=== PATIENT | female | born 1980 | race Caucasian/White ===

== ENCOUNTER 2016-10-27 19:00 | Emergency (ER) | payer OTHER ==
[2016-10-27] MEDS ORDERED: predniSONE Tab 20 MG TAB PO ONE (19:23)
[2016-10-27] MEDS ORDERED: Amoxicill/Clav 875/125mg Tab 1 TAB TAB PO ONE (19:25)
[2016-10-27] MEDS ORDERED: Amoxicill/Clav 875/125mg Tab 1 TAB TAB PO SCH (19:30)
--- NOTE | 2016-10-27 19:30 | PDOC ---
Skin Rash/Insect/Abscess HPI - General Chief Complaint: Integumentary Stated Complaint: BEE STING Date Seen by Provider: 10/27/16 Time Seen by Provider: 19:25 - History of Present Illness Initial Comments: Patient is a very nice 36-year-old woman who unfortunately suffered a bee sting yesterday this is been getting worse since the time of this thing. She now has a significant area about 4" x 8" of erythema on the posterior aspect of her right arm that is causing some general malaise and some low-grade fever. She has never had substantial response to a bee sting like this before has never really felt that she's been allergic to them. She is not allergic to any antibiotics. Have you received a tetanus shot in the past 10 years?: Yes Past Medical History - heen HEENT History: Denies History Cardiovascular History: Denies History ROS - Limitations ROS Limitations: No Limitations Cardiovascular: REPORTS: Denies Cardiac Symptoms Respiratory: REPORTS: Denies Resp Symptoms Neurological: REPORTS: Denies Neuro Symptoms Skin Rash/Insect/Abscess Exam - General Appearance General Appearance: REPORTS: Alert, Cooperative, No Acute Distress - Skin Skin: REPORTS: Other (On the posterior aspect of her right arm over her triceps she has a large area of erythema approximately 4 or inches by 8 inches that is red and tender and hot and is consistent with cellulitis appears to be a bit more than an envenomation site.) Skin Rash/Abscess Progress - Patient's Progress MDM / ED Course: I think she is developing some cellulitis in addition to the envenomation that she had. Him and go and treat her with some topical corticosteroids a couple of days oral corticosteroids in addition to some Augmentin and some antihistamines. She is to watch this area closely and seek medical attention if she begins to have increasing fever or chills expanding redness or any other concerns. I do not see any area of fluctuance or anything that could be drained at this point. Patient Care Time - Estimated PCT Patient Care Time (In Minutes): 15 Vital Signs - VS Reviewed Vital Signs Reviewed: Yes Discharge Clinical Impression: Cellulitis, Insect bite - wound Discharge Disposition: Discharged to Home Condition: Good Patient Instructions Given at Discharge: Cellulitis (ED), Insect Bite or Sting (ED) Additional Instructions: Take Augmentin 875 mg by mouth twice a day for 7 days Take [id number] antihistamines to help with your cellulitis and insect envenomation symptoms Use topical hydrocortisone over the site of envenomation to help with symptoms Take 40 mg of prednisone daily for 3 days If the area of redness is worsening or you are experiencing increasing symptoms such as increasing fever or chills malaise or other concerns do not hesitate to be seen here again or follow-up with your primary care provider right away Follow Up With: NONE,NONE [Primary Care Provider] -
[2016-10-27 20:14] VITALS: RESP 14; TEMP 98.2
== END 2016-10-27 19:44 | disposition home or self-care (01) ==
LOC: ER 19:00
DX: L03.113 Cellulitis of right upper limb (principal); R50.9 Fever, unspecified; T63.441A Toxic effect of venom of bees, accidental (unintentional), initial encounter
CPT/HCPCS: 99282 ×2; J7512

== ENCOUNTER 2016-10-28 00:40 | Emergency (ER) | payer OTHER ==
[2016-10-28] MEDS ORDERED: Sodium Chloride 0.9% 1,000 ML PRIMARY IV ONE (01:14)
[2016-10-28] MEDS ORDERED: ONDANSETRON 4 MG/2 ML VIAL IVP ONE (01:14)
[2016-10-28] MEDS ORDERED: KETOROLAC 15 MG/1 ML VIAL IVP ONE (01:14)
--- NOTE | 2016-10-28 01:19 | PDOC ---
Skin Rash/Insect/Abscess HPI - General Chief Complaint: Integumentary Stated Complaint: BEE STING, INCREASE SWELLING Date Seen by Provider: 10/28/16 Time Seen by Provider: 01:16 Source: POSITIVE: Patient, Old records Exam Limitations: POSITIVE: No limitations Nurse's Notes Reviewed & Considered: Yes - History of Present Illness Initial Comments: Patient comes in today complaining of increasing cellulitis. Patient was stung on her right arm over the triceps on October 26. She came into the emergency room earlier on the and was evaluated. She was started on prednisone and Augmentin. She took one dose of prednisone and Augmentin and returns this morning at 01 100 with increasing pain that she describes as worse she's ever had as well as increasing erythema, heat, and swelling of her right posterior upper arm. She denies any headache, she does have nausea but no vomiting, no diarrhea, no shortness of breath or cough, no chest pain. She denies fever but does have sweats and chills. The sweats and chills started the evening of the . The erythema and swelling has extended approximately 3-4 cm beyond the outline of indelible marker placed on the evening of the . Have you received a tetanus shot in the past 10 years?: Yes Body Location Affected: REPORTS: Upper Extremity (R) Timing: REPORTS: Constant Duration: >24 hours Severity: Severe Quality: REPORTS: "Pain", Itching Identified Causes: REPORTS: Yes (bee sting) When Exposed: REPORTS: Just Prior to Sx Onset Where Exposed: REPORTS: Unknown Suspected Etiology: REPORTS: Bee/Wasp Sting Similar Symptoms Previously: No Recent Care Received: REPORTS: Recently Seen, Treated by MD Any Prior Injuries Related to Current Complaint?: No - Patient Home Medications Home Medications: Home Medications Amoxicill/Clav 875/125mg [Augmentin 875/125mg] 875 mg PO DAILY 10/28/16 Prednisone 5 mg PO DAILY 10/28/16 diphenhydrAMINE HCl [Benadryl] 25 mg PO ONCE 10/28/16 - Patient Allergies Allergies/Adverse Reactions: Allergies Allergy/AdvReac Type Severity Reaction Status Date / Time No Known Allergies Allergy Unverified 10/27/16 20:34 Past Medical History - heen HEENT History: Denies History Cardiovascular History: Denies History Respiratory History: Denies History Gastrointestinal History: Denies History Genitourinary History: Denies History Endocrine History: Denies History Musculoskeletal History: Denies History Additional Musculoskeletal History: Right Shoulder surgery, Left knee surgery Neurological History: Denies History Blood Disorders: Denies History Psychiatric History: Denies History Cancer History: Denies History History of MDRO: No Alcohol Use: Occasionally Substance Use Type: None Previous Surgical History: Yes Type / Date of Surgery: Right Shoulder, Left knee, Lap Lisbet, Tonsillectomy, Tubal Anesthesia Reactions: No Significant Family History: No pertinent family hx ROS - Limitations ROS Limitations: No Limitations Constitution: REPORTS: Chills, Diaphoresis Cardiovascular: REPORTS: Denies Cardiac Symptoms Respiratory: REPORTS: Denies Resp Symptoms Neurological: REPORTS: Denies Neuro Symptoms Gastrointestinal: REPORTS: Nausea Endocrine: REPORTS: Denies Symptoms Musculoskeletal: REPORTS: Denies MS Symptoms Genitourinary: REPORTS: Denies Symptoms Eyes: REPORTS: Denies Symptoms ENT: REPORTS: Denies Symptoms Skin: REPORTS: Rash Lympathic: REPORTS: Denies Lympathic Symptoms Immunologic: POSITIVE: Denies Symptoms Psychiatric: POSITIVE: Denies Psych Symptoms Skin Rash/Insect/Abscess Exam - General Appearance General Appearance: REPORTS: Alert, Cooperative, No Acute Distress, No Evidence of Trauma - Skin Skin: REPORTS: Warm, Dry, Tender Indurated Area, Wtih Erythema Skin Character: REPORTS: Symmetric, Macular Skin Symptoms: REPORTS: Warmth, Tenderness, Swelling, Lymphangitis, Induration, Well Defined Border, Inflammation - Extremities Extremity: Non-Tender: (All Extremities), Normal ROM: (All Extremities), Normal Inspection: (All Extremities) - HEENT HEENT: POSITIVE: Head Inspection Nml, Eyes Inspection Nml, Ears Inspection Nml, Nose Inspection Nml, Oral/Dental Inspect. Nml, Pharynx Inspect. Nml, PERRL, EOMI - Neck Neck: REPORTS: Trachea Midline, No Swelling - Respiratory Respiratory: REPORTS: No Respiratory Distress, Breath Sounds Normal - Cardiovascular Cardiovascular: REPORTS: Regular Rate and Rhythm, Heart Sounds Normal - Abdomen Abdomen: Soft: (All Quadrants), Normal Bowel Sounds: (All Quadrants), Denies Tenderness: (All Quadrants), No Splenomegaly: (All Quadrants), No Hepatomegaly: (All Quadrants), No Guarding: (All Quadrants), No Rebound: (All Quadrants), No Palpable Pulse: (All Quadrants), No Palpabale Mass: (All Quadrants), No Distention: (All Quadrants), No Rigidity: (All Quadrants) - Neurological / Psychological Neurological: REPORTS: Affect Apporpriate, Oriented X3, Motor Normal, Sensation Normal Procedures - Laceration/Wound Repair Did patient have a laceration repair: No Skin Rash/Abscess Progress - Results Reviewed by me Labs Normal Except for:: Abnormal Lab Results: Entire Visit 10/28/16 Range/Units 01:46 WBC 13.10 H (4.8-10.8) 10^3/uL MCH 32.4 H (27-31) PG Neut % (Auto) 86.9 H (50-80) % [place] % (Auto) 1.8 L (5-15) % [place] # (Auto) 0.23 L (0.3-0.8) 10*3/UL Carbon Dioxide 21 L (23-33) meq/L Glucose 156 H (78-110) mg/dL Calculated Osmolality 294.0 H (267-292) mOsm/kg C-Reactive Protein 1.4 H (0.0-0.9) mg/dL Total Protein 8.3 H (6.1-8.0) g/dL Albumin/Globulin Ratio 1.20 L (1.3-2.0) mg/g Lab Results Reviewed: Yes - Patient's Progress Pain Medication Addressed: POSITIVE: Yes Re-Examine Time:: 02:05 Status: POSITIVE: Improved MDM / ED Course: Patient received an IV start, blood drawn and sent to the lab for studies. She received IV pain medication and Zofran as well as a liter of normal saline. Findings: CBC shows a mild elevation of her white count to 13. Comprehensive metabolic panels within normal limits. CRP is mildly elevated. Assessment: Cellulitis secondary to bug bite. Plan: Patient received 3 g of Unasyn here in the emergency department and is discharged home to continue with Augmentin and prednisone and follow up with her primary care physician. - Consult Counseled: POSITIVE: Patient, Family, RE: Lab Results, RE: DX, RE: Need for F/U Patient Care Time - Estimated PCT Patient Care Time (In Minutes): 30 Vital Signs - VS Reviewed Vital Signs Reviewed: Yes Discharge Clinical Impression: Cellulitis of right upper extremity Discharge Disposition: Discharged to Home Condition: Stable Patient Instructions Given at Discharge: Cellulitis (ED)
[2016-10-28 01:47] LABS: BASOPHILS # (AUTO) 0.04 10*3/UL; BASOPHILS % (AUTO) 0.3 % (0-1); EOSINOPHILS # (AUTO) 0.01 10*3/UL; EOSINOPHILS % (AUTO) 0.1 % (0-8); HEMATOCRIT 43.2 % (37.0-47.0); HEMOGLOBIN 15.4 g/dL (12.0-16.0); MEAN CORPUSCULAR HEMOGLOBIN 32.4 PG (27-31); MEAN CORPUSCULAR HGB CONC 35.6 g/dL (33-37); MEAN CORPUSCULAR VOLUME 90.9 FL (81-99); MEAN PLATELET VOLUME 10.5 FL (7.4-12.2); MONOCYTES # (AUTO) 0.23 10*3/UL (0.3-0.8); MONOCYTES % (AUTO) 1.8 % (5-15); NEUTROPHILS # (AUTO) 11.39 10*3/UL; NEUTROPHILS % (AUTO) 86.9 % (50-80); RED BLOOD COUNT 4.75 10^6/uL (4.20-5.40)
[2016-10-28 01:55] LABS: PLATELET MORPHOLOGY COMMENT NORMAL MORPHOLOGY (NORM); RBC MORPHOLOGY COMMENT NORMAL MORPHOLOGY (NORM); WBC MORPHOLOGY COMMENT NORMAL MORPHOLOGY (NORM)
[2016-10-28 01:56] LABS: BLOOD UREA NITROGEN 13 mg/dL (7-22); BUN/CREATININE RATIO 16.25 (6-20); C-REACTIVE PROTEIN 1.4 mg/dL (0.0-0.9); EST GLOMERULAR FILTRATION > 60 (>60 ml/min/1.73m(2)); SERUM ALBUMIN 4.6 g/dL (3.5-4.8)
[2016-10-28] MEDS ORDERED: Ampicillin/Sulbactam Inj 3 GM in Sodium Chloride 0.9% 100 ML IV ONE (02:02)
[2016-10-28 03:03] VITALS: RESP 14; TEMP 96.5
== END 2016-10-28 03:05 | disposition home or self-care (01) ==
LOC: ER 00:40
DX: L03.113 Cellulitis of right upper limb (principal)
CPT/HCPCS: 80053; 85025; 86140; 96361; 96365; 96375; 99282; 99283; J0295; J1885; J2405; J7030; J7050